=== PATIENT | male | born 1965 | race Caucasian/White ===

== ENCOUNTER 2017-06-17 10:24 | Inpatient (IN) | payer BC ==
[~2017-06-17] VITALS: Ht 188 cm; Wt 99.8 kg
[2017-06-17 11:12] VITALS: BP_SYST 103
[2017-06-17] MEDS ORDERED: SITA1TAB10 PO (12:09)
[2017-06-17] MEDS ORDERED: GLIM2TAB2 PO (12:09)
[2017-06-17] MEDS ORDERED: BENA20TA2 PO (12:09)
[2017-06-17] MEDS ORDERED: SIMV10TA2 PO (12:09)
[2017-06-17] MEDS ORDERED: ASPI-1063 PO (12:09)
[2017-06-17] MEDS ORDERED: CARV12.548 PO (12:09)
[2017-06-17] MEDS ORDERED: OXYC5TAB84 PO (12:33)
[2017-06-17 13:52] LABS: HEMATOCRIT 39.2 % (36-54); HEMOGLOBIN 12.7 g/dL (14.0-18.0); MEAN CORPUSCULAR HEMOGLOBIN 28 pg (27-31); MEAN CORPUSCULAR HGB CONC 33 % (32-36); MEAN CORPUSCULAR VOLUME 86 fL (79.0-98.0); PLATELET COUNT (AUTO) 261 K/uL (130-430); RED BLOOD CELL COUNT(AUTO) 4.56 MIL/uL (4.2-6.2); RED CELL DISTRIBUTION WIDTH 14.3 % (9.0-15.0); WHITE BLOOD COUNT (AUTO) 20.6 K/uL (4.8-10.8)
[2017-06-17 13:55] LABS: CALCIUM 9.3 mg/dL (8.4-11.0); CREATININE 1.25 mg/dL (0.55-1.30)
[2017-06-17 14:25] LABS: BAND % (MANUAL) 16 % (0-6)
[2017-06-17 14:26] LABS: ATYPICAL LYMPHOCYTES % 1 % (0-0); LYMPHOCYTES % (MANUAL) 8 % (20-46); MONOCYTES % (MANUAL) 3 % (0-11)
[2017-06-17 14:27] LABS: BASOPHILS % (MANUAL) 0 % (0-2); EOSINOPHILS % (MANUAL) 0 % (0-7); METAMYELOCYTES % 1 % (0-0)
[2017-06-17 14:28] LABS: MYELOCYTES % 1 % (0-0)
[2017-06-17] MEDS: metroNIDAZOLE 500 mg/NS 100 ML IV SCH ×2 (15:44→22:35)
[2017-06-17] MEDS: PIPERACILLIN/TAZO 4.5GM/DEX-IS 100 ML IV SCH ×2 (15:45→18:19)
[2017-06-17 20:00] VITALS: BP_SYST 116
[2017-06-17] MEDS ORDERED: CARVEDILOL 12.5 MG TABLET (COREG) PO SCH (21:00)
[2017-06-17] MEDS: [UNRECOGNIZED DRUG - REMARK] PO SCH (21:00)
[2017-06-17] MEDS: ACETAMINOPHEN 325 MG TABLET PO PRN (22:37)
[2017-06-17 23:52] VITALS: BP_SYST 114
[2017-06-18] VITALS (7 sets, daily range): BP systolic 102–129
[2017-06-18] MEDS: TEMAZEPAM 15 MG CAPSULE PO PRN ×2 (00:44→22:22)
[2017-06-18] MEDS: PIPERACILLIN/TAZO 4.5GM/DEX-IS 100 ML IV SCH ×4 (00:45→18:21)
[2017-06-18] MEDS: metroNIDAZOLE 500 mg/NS 100 ML IV SCH ×3 (05:13→22:22)
[2017-06-18] MEDS: ACETAMINOPHEN 325 MG TABLET PO PRN (07:17)
[2017-06-18] MEDS: MORPHINE 2 MG/ML INJ. SYRINGE IVP PRN ×2 (07:21→15:21)
[2017-06-18] MEDS ORDERED: BENA20TA2 PO (07:57)
[2017-06-18] MEDS ORDERED: SITA1TAB10 PO (07:57)
[2017-06-18] MEDS ORDERED: DAPA10TA PO (07:57)
[2017-06-18] MEDS ORDERED: CARV12.548 PO (07:57)
[2017-06-18] MEDS ORDERED: ASPI-1063 PO (07:57)
[2017-06-18] MEDS ORDERED: GLIM2TAB2 PO (07:57)
[2017-06-18] MEDS ORDERED: ASPIRIN 81 MG TABLET(ECOTRIN) PO SCH (09:00)
[2017-06-18] MEDS ORDERED: BENAZEPRIL HCL 20 MG TABLET (LOTENSIN) PO SCH (09:00)
[2017-06-18] MEDS ORDERED: SIMVASTATIN 10 MG TABLET PO SCH (09:00)
[2017-06-18] MEDS ORDERED: SIMVASTATIN 10 MG TAB PO SCH (09:00)
[2017-06-18] MEDS ORDERED: GLIMEPIRIDE 2 MG TABLET PO SCH (09:00)
[2017-06-18] MEDS ORDERED: LIDOCAINE/EPI 1% 1:100000 20 ML VIAL INJ ONE (10:00)
[2017-06-18] MEDS ORDERED: LIDOCAINE/EPI MPF 1%1:200000 30 ML VIAL INJ ONE (10:15)
[2017-06-18] MEDS ORDERED: COMMUNICATION ORDER XX ONE (11:30)
[2017-06-18] MEDS: [UNRECOGNIZED DRUG - REMARK] PO SCH (11:55)
[2017-06-18] MEDS: BENAZAPRIL PO SCH (11:56)
[2017-06-18] MEDS: ASPIRIN EC 81 MG PO SCH (11:56)
[2017-06-18] MEDS: CARVEDILOL 12.5 MG PO SCH ×2 (11:57→21:03)
[2017-06-18] MEDS: GLIMEPIRIDE 2 MG TAB PO SCH (11:57)
[2017-06-18] MEDS: FARXIGA 10 MG PO SCH (11:58)
[2017-06-18] MEDS: INSULIN ASPART 100 UNITS/ML, 10 ML VIAL (NovoLOG) SUBCUT PRN ×2 (12:03→18:54)
[2017-06-18] MEDS ORDERED: GLIMEPIRIDE 2 MG TABLET PO PRN (13:45)
[2017-06-18] MEDS: CARVEDILOL 12.5 MG TABLET (COREG) PO SCH (21:02)
[2017-06-18] MEDS: ATORVASTATIN 10 MG TABLET PO SCH (21:02)
[2017-06-19] MEDS: PIPERACILLIN/TAZO 4.5GM/DEX-IS 100 ML IV SCH ×5 (00:07→23:27)
[2017-06-19 03:58] VITALS: BP_SYST 122
[2017-06-19] MEDS: metroNIDAZOLE 500 mg/NS 100 ML IV SCH ×3 (06:23→22:08)
[2017-06-19] MEDS: MORPHINE 2 MG/ML INJ. SYRINGE IVP PRN (06:29)
[2017-06-19 06:34] LABS: BASOPHILS % (AUTO) 0.1 % (0.0-2.0); EOSINOPHILS # (AUTO) 0.1 K/uL (0.0-0.4); EOSINOPHILS % (AUTO) 0.7 % (0.0-4.0); HEMATOCRIT 34.1 % (36-54); HEMOGLOBIN 11.6 g/dL (14.0-18.0); LYMPHOCYTES # (AUTO) 3.4 K/uL (1.0-5.5); LYMPHOCYTES % (AUTO) 21.6 % (20.5-51.5); MEAN CORPUSCULAR HEMOGLOBIN 29 pg (27-31); MEAN CORPUSCULAR HGB CONC 34 % (32-36); MEAN CORPUSCULAR VOLUME 84 fL (79.0-98.0); MONOCYTES # (AUTO) 1.2 K/uL (0.0-1.0); MONOCYTES % (AUTO) 7.6 % (1.7-9.3); NEUTROPHILS # (AUTO) 11.1 K/uL (1.8-7.7); PLATELET COUNT (AUTO) 270 K/uL (130-430); RED BLOOD CELL COUNT(AUTO) 4.05 MIL/uL (4.2-6.2); RED CELL DISTRIBUTION WIDTH 14.6 % (9.0-15.0); WHITE BLOOD COUNT (AUTO) 15.8 K/uL (4.8-10.8)
[2017-06-19 06:54] LABS: ALBUMIN 2.3 g/dL (3.4-4.8); CALCIUM 8.9 mg/dL (8.4-11.0); CREATININE 0.96 mg/dL (0.55-1.30); POTASSIUM 4.3 mmol/L (3.5-5.1); TOTAL BILIRUBIN 0.6 mg/dL (0.0-1.0); TOTAL PROTEIN, SERUM 7.3 g/dL (6.4-8.3)
[2017-06-19 08:00] VITALS: BP_SYST 128
[2017-06-19] MEDS: ASPIRIN 81 MG TABLET(ECOTRIN) PO SCH (09:00)
[2017-06-19] MEDS: CARVEDILOL 12.5 MG PO SCH ×2 (09:00→22:08)
[2017-06-19] MEDS: BENAZEPRIL HCL 20 MG TABLET (LOTENSIN) PO SCH (09:00)
[2017-06-19] MEDS: FARXIGA 10 MG PO SCH (09:16)
[2017-06-19] MEDS: BENAZAPRIL PO SCH (09:19)
[2017-06-19] MEDS: CARVEDILOL 12.5 MG TABLET (COREG) PO SCH ×2 (09:20→21:00)
[2017-06-19] MEDS: ASPIRIN EC 81 MG PO SCH (09:21)
[2017-06-19] MEDS: GLIMEPIRIDE 2 MG TAB PO SCH (09:22)
[2017-06-19] MEDS: oxyCODONE HCL 5 MG TABLET PO PRN ×2 (09:39→14:51)
[2017-06-19] MEDS: INSULIN ASPART 100 UNITS/ML, 10 ML VIAL (NovoLOG) SUBCUT PRN ×2 (11:59→22:16)
[2017-06-19 12:13] VITALS: BP_SYST 128
[2017-06-19 16:49] VITALS: BP_SYST 131
[2017-06-19] MEDS: DOCUSATE SODIUM 100 MG CAPSULE PO SCH (18:45)
[2017-06-19] MEDS ORDERED: DOCUSATE SODIUM 100 MG CAPSULE PO ONE (19:00)
[2017-06-19 20:00] VITALS: BP_SYST 135
[2017-06-19] MEDS: TEMAZEPAM 15 MG CAPSULE PO PRN (22:09)
[2017-06-19] MEDS: ATORVASTATIN 10 MG TABLET PO SCH (22:09)
[2017-06-20 00:01] VITALS: BP_SYST 122
[2017-06-20] MEDS: PIPERACILLIN/TAZO 4.5GM/DEX-IS 100 ML IV SCH ×3 (05:38→19:34)
[2017-06-20 05:57] VITALS: BP_SYST 129
[2017-06-20] MEDS: INSULIN ASPART 100 UNITS/ML, 10 ML VIAL (NovoLOG) SUBCUT PRN ×2 (05:57→21:48)
[2017-06-20] MEDS: metroNIDAZOLE 500 mg/NS 100 ML IV SCH ×3 (06:43→21:43)
[2017-06-20 08:12] VITALS: BP_SYST 144
[2017-06-20] MEDS: ASPIRIN EC 81 MG PO SCH (09:00)
[2017-06-20] MEDS: CARVEDILOL 12.5 MG PO SCH ×2 (09:00→21:00)
[2017-06-20] MEDS: BENAZAPRIL PO SCH (09:00)
[2017-06-20] MEDS: GLIMEPIRIDE 2 MG TAB PO SCH (10:00)
[2017-06-20] MEDS: FARXIGA 10 MG PO SCH (10:00)
[2017-06-20] MEDS: ASPIRIN 81 MG TABLET(ECOTRIN) PO SCH (10:07)
[2017-06-20] MEDS: BENAZEPRIL HCL 20 MG TABLET (LOTENSIN) PO SCH (10:07)
[2017-06-20] MEDS: DOCUSATE SODIUM 100 MG CAPSULE PO SCH (10:07)
[2017-06-20] MEDS: CARVEDILOL 12.5 MG TABLET (COREG) PO SCH ×2 (10:08→21:43)
[2017-06-20 12:24] VITALS: BP_SYST 149
[2017-06-20 15:17] LABS: BASOPHILS # (AUTO) 0.1 K/uL (0.0-0.2); BASOPHILS % (AUTO) 0.8 % (0.0-2.0); EOSINOPHILS # (AUTO) 0.1 K/uL (0.0-0.4); EOSINOPHILS % (AUTO) 1.1 % (0.0-4.0); HEMATOCRIT 37.4 % (36-54); HEMOGLOBIN 12.2 g/dL (14.0-18.0); LYMPHOCYTES % (AUTO) 22.5 % (20.5-51.5); MEAN CORPUSCULAR HEMOGLOBIN 28 pg (27-31); MEAN CORPUSCULAR HGB CONC 33 % (32-36); MEAN CORPUSCULAR VOLUME 86 fL (79.0-98.0); MONOCYTES % (AUTO) 7.6 % (1.7-9.3); NEUTROPHILS # (AUTO) 9.2 K/uL (1.8-7.7); PLATELET COUNT (AUTO) 355 K/uL (130-430); RED BLOOD CELL COUNT(AUTO) 4.37 MIL/uL (4.2-6.2); RED CELL DISTRIBUTION WIDTH 14.5 % (9.0-15.0); WHITE BLOOD COUNT (AUTO) 13.4 K/uL (4.8-10.8)
[2017-06-20 16:17] VITALS: BP_SYST 135
[2017-06-20 20:00] VITALS: BP_SYST 127
[2017-06-20] MEDS: ATORVASTATIN 10 MG TABLET PO SCH (21:42)
[2017-06-20] MEDS: TEMAZEPAM 15 MG CAPSULE PO PRN (21:42)
[2017-06-21] VITALS (7 sets, daily range): BP systolic 90–131
[2017-06-21] MEDS: PIPERACILLIN/TAZO 4.5GM/DEX-IS 100 ML IV SCH ×5 (00:35→23:58)
[2017-06-21] MEDS: metroNIDAZOLE 500 mg/NS 100 ML IV SCH ×3 (05:04→21:57)
[2017-06-21] MEDS: INSULIN ASPART 100 UNITS/ML, 10 ML VIAL (NovoLOG) SUBCUT PRN ×4 (05:59→22:02)
[2017-06-21 08:06] LABS: BASOPHILS # (AUTO) 0.1 K/uL (0.0-0.2); BASOPHILS % (AUTO) 1.1 % (0.0-2.0); EOSINOPHILS # (AUTO) 0.1 K/uL (0.0-0.4); EOSINOPHILS % (AUTO) 1.4 % (0.0-4.0); HEMATOCRIT 36.2 % (36-54); LYMPHOCYTES # (AUTO) 2.7 K/uL (1.0-5.5); LYMPHOCYTES % (AUTO) 26.2 % (20.5-51.5); MEAN CORPUSCULAR HEMOGLOBIN 28 pg (27-31); MEAN CORPUSCULAR HGB CONC 33 % (32-36); MEAN CORPUSCULAR VOLUME 86 fL (79.0-98.0); MONOCYTES # (AUTO) 0.9 K/uL (0.0-1.0); MONOCYTES % (AUTO) 8.3 % (1.7-9.3); NEUTROPHILS # (AUTO) 6.7 K/uL (1.8-7.7); PLATELET COUNT (AUTO) 342 K/uL (130-430); RED BLOOD CELL COUNT(AUTO) 4.21 MIL/uL (4.2-6.2); RED CELL DISTRIBUTION WIDTH 14.7 % (9.0-15.0); WHITE BLOOD COUNT (AUTO) 10.4 K/uL (4.8-10.8)
[2017-06-21 08:19] LABS: ALBUMIN 2.3 g/dL (3.4-4.8); CREATININE 0.91 mg/dL (0.55-1.30); POTASSIUM 5.1 mmol/L (3.5-5.1); TOTAL BILIRUBIN 0.6 mg/dL (0.0-1.0); TOTAL PROTEIN, SERUM 7.3 g/dL (6.4-8.3)
[2017-06-21] MEDS: BENAZEPRIL HCL 20 MG TABLET (LOTENSIN) PO SCH (09:00)
[2017-06-21] MEDS: CARVEDILOL 12.5 MG TABLET (COREG) PO SCH (09:00)
[2017-06-21] MEDS: ASPIRIN 81 MG TABLET(ECOTRIN) PO SCH (09:00)
[2017-06-21] MEDS: DOCUSATE SODIUM 100 MG CAPSULE PO SCH (09:44)
[2017-06-21] MEDS: GLIMEPIRIDE 2 MG TAB PO SCH (09:50)
[2017-06-21] MEDS: FARXIGA 10 MG PO SCH (09:50)
[2017-06-21] MEDS: CARVEDILOL 12.5 MG PO SCH ×2 (09:50→21:57)
[2017-06-21] MEDS: ASPIRIN EC 81 MG PO SCH (09:50)
[2017-06-21] MEDS: BENAZAPRIL PO SCH (09:50)
[2017-06-21 15:08] LABS: ALBUMIN 2.6 g/dL (3.4-4.8); CALCIUM 9.5 mg/dL (8.4-11.0); CREATININE 1.01 mg/dL (0.55-1.30); POTASSIUM 4.7 mmol/L (3.5-5.1); TOTAL BILIRUBIN 0.4 mg/dL (0.0-1.0); TOTAL PROTEIN, SERUM 8.1 g/dL (6.4-8.3)
[2017-06-21] MEDS: [UNRECOGNIZED DRUG - OTHER] PO SCH (17:34)
[2017-06-21] MEDS: TEMAZEPAM 15 MG CAPSULE PO PRN (21:55)
[2017-06-21] MEDS: ATORVASTATIN 10 MG TABLET PO SCH (21:55)
[2017-06-22 03:47] VITALS: BP_SYST 115
[2017-06-22] MEDS: PIPERACILLIN/TAZO 4.5GM/DEX-IS 100 ML IV SCH ×3 (05:34→18:02)
[2017-06-22] MEDS: metroNIDAZOLE 500 mg/NS 100 ML IV SCH ×2 (06:23→13:58)
[2017-06-22 06:27] LABS: INR 1.1 (0.80-1.20); PROTHROMBIN TIME 11.9 SECS (9.5-12.5)
[2017-06-22 08:00] VITALS: BP_SYST 119
[2017-06-22] MEDS: BENAZAPRIL PO SCH (09:00)
[2017-06-22] MEDS: DOCUSATE SODIUM 100 MG CAPSULE PO SCH (09:15)
[2017-06-22] MEDS: BENAZEPRIL HCL 20 MG TABLET (LOTENSIN) PO SCH (09:16)
[2017-06-22] MEDS: [UNRECOGNIZED DRUG - OTHER] PO SCH (09:17)
[2017-06-22] MEDS: ASPIRIN EC 81 MG PO SCH (09:18)
[2017-06-22] MEDS: CARVEDILOL 12.5 MG PO SCH (09:18)
[2017-06-22] MEDS: FARXIGA 10 MG PO SCH (09:19)
[2017-06-22] MEDS: GLIMEPIRIDE 2 MG TAB PO SCH (09:19)
[2017-06-22] MEDS: INSULIN ASPART 100 UNITS/ML, 10 ML VIAL (NovoLOG) SUBCUT PRN (11:37)
[2017-06-22 12:01] VITALS: BP_SYST 119
[2017-06-22 17:18] VITALS: BP_SYST 122
[2017-06-22 17:20] VITALS: BP_SYST 116
[2017-06-22 17:38] VITALS: BP_SYST 119
[2017-06-22] MEDS ORDERED: CEFE2VIA11 IJ (17:44)
== END 2017-06-22 19:10 | disposition home health service (06) | DRG 872 ==
LOC: SMU 10:24
PROVIDERS: ADMIT Internal Medicine Infectious Disease; ATTEND Internal Medicine Infectious Disease
PROC: 0C9 Mouth and Throat, Drainage (ICD-10-PCS; principal; 2017-06-20)
PROC: 02HV33Z Insertion of Infusion Device into Superior Vena Cava, Percutaneous Approach (ICD-10-PCS; 2017-06-22)
PROC: B548ZZA Ultrasonography of Superior Vena Cava, Guidance (ICD-10-PCS; 2017-06-22)
DX: A41.9 Sepsis, unspecified organism (principal); L03.221 Cellulitis of neck; L02.01 Cutaneous abscess of face; I10 Essential (primary) hypertension; L03.211 Cellulitis of face; E11.9 Type 2 diabetes mellitus without complications; E78.5 Hyperlipidemia, unspecified; E78.00 Pure hypercholesterolemia, unspecified; G47.00 Insomnia, unspecified
CPT/HCPCS: 36415; 70490; 80048; 80053; 82962; 83605; 85007; 85025; 85027; 85610-TC; 85730-TC; 87040-TC; 87070-TC; 87075-TC; C1751; C1769; J1815; J2270; J2543; J3490; J7050